=== PATIENT | female | born 1935 | race Asian ===

== ENCOUNTER 2022-10-19 05:41 | Inpatient (IN) | payer OTHER ==
[~2022-10-19] VITALS: Ht 149.9 cm; Wt 52.5 kg
[~2022-10-19 05:41] MED LIST: ASPI-1198 PO; LISI-894 PO
[2022-10-19] MEDS ORDERED: ALBUTEROL SULFATE 2.5 MG/0.5 ML NEB SOLUTION NEB ONE (06:00)
[2022-10-19] MEDS ORDERED: IPRATROPIUM BROMIDE 0.5 MG/2.5 ML NEB SOLUTION NEB ONE (06:00)
[2022-10-19] MEDS ORDERED: FUROSEMIDE 40 MG/4 ML VIAL IVP ONE (06:15)
[2022-10-19] MEDS ORDERED: NITROGLYCERIN 2% (1 GM=INCH) OINTMENT PACKET TP ONE (06:15)
[2022-10-19 06:22] LABS: COVID AG,FIA SOURCE NASAL SWAB
[2022-10-19 06:26] LABS: BASOPHILS % (AUTO) 1.1 % (0.0-2.0); EOSINOPHILS % (AUTO) 3.3 % (1.0-6.0); HEMATOCRIT 33.5 % (36-46); HEMOGLOBIN 10.2 g/dL (12.0-16.0); LYMPHOCYTES # (AUTO) 1.7 K/uL (1.0-4.8); LYMPHOCYTES % (AUTO) 27.8 % (22.0-44.0); MEAN CORPUSCULAR HEMOGLOBIN 22.8 pg (26.0-34.0); MEAN CORPUSCULAR HGB CONC 30.5 G/dL (31.0-37.0); MEAN CORPUSCULAR VOLUME 75 fL (80-100); MONOCYTES # (AUTO) 0.3 K/uL (0.1-1.0); MONOCYTES % (AUTO) 4.7 % (2.0-9.0); NEUTROPHILS # (AUTO) 3.8 K/uL (1.8-7.7); NEUTROPHILS % (AUTO) 63.1 % (40.0-70.0); PLATELET COUNT (AUTO) 282 K/uL (150-450); RED BLOOD CELL COUNT(AUTO) 4.47 MIL/uL (4.00-5.20); RED CELL DISTRIBUTION WIDTH 19.6 % (11.5-14.5)
[2022-10-19 06:32] LABS: ANION GAP 6 mmol/L (8-16); CALCIUM, TOTAL 8.6 mg/dL (8.8-10.5); CARBON DIOXIDE 30 mmol/L (22-29); CHLORIDE 99 mmol/L (98-107); CREATININE 0.83 mg/dL (0.60-1.30); GLOMERULAR FILTR. RATE CALC > 60 mL/min (>60); GLUCOSE,RANDOM 241 mg/dL (70-110); POTASSIUM 3.8 mmol/L (3.5-5.1); SODIUM SERUM 135 mmol/L (136-145); UREA NITROGEN, BLOOD 13 mg/dL (7-18)
[2022-10-19 06:49] LABS: INFLUENZA TYPE A NEGATIVE FOR TYPE A (NEGATIVE); INFLUENZA TYPE B NEGATIVE FOR TYPE B (NEGATIVE)
[2022-10-19 06:57] LABS: ALANINE AMINOTRANSFERASE 29 U/L (12-78); ALBUMIN 3.8 g/dL (3.4-5.0); ALKALINE PHOSPHATASE 88 U/L (46-116); ASPARTATE AMINOTRANSFERASE 49 U/L (15-37); B-TYPE NATRIURETIC PEPTIDE 286 pg/mL (0-100); BILIRUBIN,TOTAL 0.4 mg/dL (0.1-1.0); CREATINE KINASE, TOTAL ONLY 85 U/L (26-192)
[2022-10-19 08:15] LABS: APPEARANCE,URINE CLEAR (CLEAR); BILIRUBIN,URINE NEGATIVE (NEGATIVE); GLUCOSE, URINE (UA) NEGATIVE (NEGATIVE); KETONES,URINE NEGATIVE (NEGATIVE); LEUKOCYTE ESTERASE ,URINE NEGATIVE (NEGATIVE); NITRATE,URINE NEGATIVE (NEGATIVE); OCCULT BLOOD,URINE TRACE (NEGATIVE); PROTEIN,URINE NEGATIVE (NEGATIVE); SPECIFIC GRAVITIY, URINE 1.005 (1.003-1.030); UROBILINOGEN,URINE <=1.0 mg/dL (<=1.0)
[2022-10-19] MEDS ORDERED: METF-1211 PO (08:25)
[2022-10-19] MEDS ORDERED: FURO20TA4 PO (08:25)
[2022-10-19] MEDS ORDERED: AMLO5TAB66 PO (08:25)
[2022-10-19] MEDS ORDERED: [UNRECOGNIZED DRUG - CODE] PO (08:25)
[2022-10-19] MEDS ORDERED: MULT-1336 PO (08:25)
[2022-10-19] MEDS ORDERED: ASPI-1444 PO (08:25)
[2022-10-19] MEDS ORDERED: OS500 PO (08:25)
[2022-10-19] MEDS ORDERED: RALO60TA13 PO (08:25)
[2022-10-19] MEDS ORDERED: LISI20TA24 PO (08:25)
[2022-10-19 08:30] LABS: BACTERIA,URINE None Seen /HPF (None Seen); RBC,URINE 0-2 /HPF (0-2); SQUAMOUS EPITHELIAL CELL,UR Rare /LPF (None Seen); WBC,URINE 0-2 /HPF (0-5)
[2022-10-19] MEDS ORDERED: ACETAMINOPHEN 325 MG TABLET PO PRN (08:30)
[2022-10-19] MEDS ORDERED: 0.9% SODIUM CHLORIDE 10 ML SYRINGE IVP PRN (08:30)
[2022-10-19] MEDS ORDERED: BISACODYL 10 MG RECTAL RECTAL SUPPOSITORY PR PRN (08:30)
[2022-10-19] MEDS ORDERED: NITROGLYCERIN 0.4 MG SUBLINGUAL TABLET #25 SL PRN (08:30)
[2022-10-19] MEDS ORDERED: HydrALAZINE HCL 20 MG/ML VIAL IVP PRN (08:30)
[2022-10-19] MEDS ORDERED: ONDANSETRON HCL 4 MG/2 ML VIAL IVP PRN (08:30)
[2022-10-19] MEDS ORDERED: INSULIN LISPRO 100 UNITS/ML SQ PRN (08:30)
[2022-10-19] MEDS ORDERED: DOCUSATE SODIUM 100 MG CAPSULE PO PRN (08:30)
[2022-10-19] MEDS ORDERED: DEXTROSE 50%-WATER 25 GM/50 ML SYRINGE IVP PRN (08:30)
[2022-10-19 09:00] LABS: % IRON SATURATION 6.6 % (22-44)
[2022-10-19] MEDS ORDERED: LISINOPRIL 20 MG TABLET PO SCH (09:00)
[2022-10-19] MEDS ORDERED: METOPROLOL SUCCINATE 25 MG ER TABLET PO ONE (09:00)
[2022-10-19 09:03] LABS: HEMOGLOBIN A1C 6.2 % (3.8-5.6)
[2022-10-19 09:10] LABS: ABG BASE EXCESS 3.5 mmol/L (-2.0-3.0); ABG CARBOXYHEMOGLOBIN 0.6 % (0.0-1.5); ABG HCO3 27.1 mmol/L (22.0-26.0); ABG METHEMOGLOBIN 0.1 % (0.0-1.5); ABG OXYGEN CONTENT 16.4 mL/dL (15.0-23.0); ABG OXYGEN SATURATION 99.7 % (95.0-98.0); ABG PCO2 47 mmHg (35-45); ABG PH 7.399 (7.35-7.450); PO2, ARTERIAL BG 385.5 mmHg (71.0-79.0); SOURCE, BLOOD GAS ARTERIAL; TEMPERATURE, FAHRENHEIT, BG 97.9 FAHREN (96.0-98.6)
[2022-10-19 09:11] LABS: FREE T4 (FREE THYROXINE) 0.83 ng/dL (0.76-1.46)
[2022-10-19 09:11] LABS: O2 DEVICE,BLOOD GAS BIPAP (ROOM AIR); SITE, BLOOD GAS LFT RADIAL
[2022-10-19] MEDS: CALCIUM [CALCIUM CARB 1250MG] 500 MG TABLET PO SCH ×2 (09:11→21:03)
[2022-10-19] MEDS: ASPIRIN 81 MG CHEWABLE TABLET PO SCH ×2 (09:11→09:16)
[2022-10-19] MEDS: MULTIVITAMINS, THERAPEUTIC TABLET PO SCH (09:11)
[2022-10-19] MEDS: RALOXIFENE HCL 60 MG TABLET PO SCH (09:11)
[2022-10-19 09:12] LABS: SPONTANEOUS VT, BG 293 ml
[2022-10-19] MEDS ORDERED: DILTIAZEM HCL 125 MG in DEXTROSE 5%-WATER 100 ML IV SCH (10:30)
[2022-10-19] MEDS ORDERED: DILTIAZEM HCL 5 MG/ML 5 ML VIAL IVP ONE (10:30)
[2022-10-19] MEDS ORDERED: HEPARIN SODIUM,PORCINE 5,000 UNITS/ML VIAL IVP ONE (10:45)
[2022-10-19] MEDS ORDERED: HEPARIN SODIUM,PORCINE 5,000 UNITS/ML VIAL IVP PRN ×2 (10:45)
[2022-10-19] MEDS ORDERED: HEPARIN SODIUM 25000 UNITS/D5W 250 ML IV PRN (10:45)
[2022-10-19 10:51] LABS: GLUCOSE,POINT OF CARE 116 MG/DL (70-110)
[2022-10-19] MEDS ORDERED: AMIODARONE HCL 150 MG in DEXTROSE 5%-WATER 97 ML IV ONE (11:30)
[2022-10-19] MEDS ORDERED: AMIODARONE HCL 360 MG in DEXTROSE 5%-WATER 242.8 ML IV ONE (11:30)
[2022-10-19] MEDS ORDERED: ROSU40 PO (11:35)
[2022-10-19 12:01] LABS: BASOPHILS % (AUTO) 0.3 % (0.0-2.0); EOSINOPHILS % (AUTO) 0.1 % (1.0-6.0); HEMATOCRIT 32.5 % (36-46); LYMPHOCYTES # (AUTO) 1.4 K/uL (1.0-4.8); LYMPHOCYTES % (AUTO) 18.6 % (22.0-44.0); MEAN CORPUSCULAR HEMOGLOBIN 22.2 pg (26.0-34.0); MEAN CORPUSCULAR HGB CONC 30.6 G/dL (31.0-37.0); MEAN CORPUSCULAR VOLUME 73 fL (80-100); MONOCYTES # (AUTO) 0.4 K/uL (0.1-1.0); MONOCYTES % (AUTO) 5.4 % (2.0-9.0); NEUTROPHILS # (AUTO) 5.9 K/uL (1.8-7.7); NEUTROPHILS % (AUTO) 75.6 % (40.0-70.0); PLATELET COUNT (AUTO) 277 K/uL (150-450); RED BLOOD CELL COUNT(AUTO) 4.49 MIL/uL (4.00-5.20); RED CELL DISTRIBUTION WIDTH 19.4 % (11.5-14.5)
[2022-10-19 12:10] LABS: MAGNESIUM 1.8 mg/dL (1.80-2.40); POTASSIUM 3.6 mmol/L (3.5-5.1)
[2022-10-19] MEDS ORDERED: AMIODARONE HCL 540 MG in DEXTROSE 5%-WATER 239.2 ML IV ONE (19:00)
[2022-10-19 20:24] VITALS: BP 125/74
[2022-10-19] MEDS ORDERED: ROSUVASTATIN CALCIUM 20 MG TABLET PO SCH (21:00)
[2022-10-19 23:51] VITALS: BP 113/58
[2022-10-20 04:45] VITALS: BP 132/75
[2022-10-20 07:07] LABS: BASOPHILS % (AUTO) 0.6 % (0.0-2.0); EOSINOPHILS % (AUTO) 1.3 % (1.0-6.0); HEMATOCRIT 31.1 % (36-46); HEMOGLOBIN 9.6 g/dL (12.0-16.0); LYMPHOCYTES # (AUTO) 1.9 K/uL (1.0-4.8); LYMPHOCYTES % (AUTO) 23.5 % (22.0-44.0); MEAN CORPUSCULAR HEMOGLOBIN 22.5 pg (26.0-34.0); MEAN CORPUSCULAR HGB CONC 30.9 G/dL (31.0-37.0); MEAN CORPUSCULAR VOLUME 73 fL (80-100); MONOCYTES # (AUTO) 0.4 K/uL (0.1-1.0); MONOCYTES % (AUTO) 5.3 % (2.0-9.0); NEUTROPHILS # (AUTO) 5.7 K/uL (1.8-7.7); NEUTROPHILS % (AUTO) 69.3 % (40.0-70.0); PLATELET COUNT (AUTO) 276 K/uL (150-450); RED BLOOD CELL COUNT(AUTO) 4.27 MIL/uL (4.00-5.20); RED CELL DISTRIBUTION WIDTH 19.6 % (11.5-14.5)
[2022-10-20 07:15] VITALS: BP 120/63
[2022-10-20 07:32] LABS: ALANINE AMINOTRANSFERASE 24 U/L (12-78); ALBUMIN 3.4 g/dL (3.4-5.0); ALKALINE PHOSPHATASE 85 U/L (46-116); ANION GAP 4 mmol/L (8-16); ASPARTATE AMINOTRANSFERASE 40 U/L (15-37); BILIRUBIN,TOTAL 0.7 mg/dL (0.1-1.0); CALCIUM, TOTAL 8.3 mg/dL (8.8-10.5); CARBON DIOXIDE 35 mmol/L (22-29); CHLORIDE 100 mmol/L (98-107); CREATININE 0.87 mg/dL (0.60-1.30); GLOMERULAR FILTR. RATE CALC > 60 mL/min (>60); GLUCOSE,RANDOM 113 mg/dL (70-110); POTASSIUM 3.9 mmol/L (3.5-5.1); SODIUM SERUM 139 mmol/L (136-145); TOTAL PROTEIN, SERUM 7.5 g/dL (6.4-8.2); UREA NITROGEN, BLOOD 11 mg/dL (7-18)
[2022-10-20] MEDS ORDERED: FUROSEMIDE 20 MG/2 ML VIAL IVP SCH (09:00)
[2022-10-20] MEDS: RALOXIFENE HCL 60 MG TABLET PO SCH (09:29)
[2022-10-20] MEDS: MULTIVITAMINS, THERAPEUTIC TABLET PO SCH (09:29)
[2022-10-20] MEDS: CALCIUM [CALCIUM CARB 1250MG] 500 MG TABLET PO SCH (09:29)
[2022-10-20] MEDS ORDERED: AMIODARONE HCL 200 MG TABLET PO SCH (09:45)
[2022-10-20] MEDS ORDERED: APIXABAN 2.5 MG TABLET PO SCH (09:45)
[2022-10-20 11:27] VITALS: BP 112/63
[2022-10-20 12:06] LABS: GLUCOMETER DEV NAME(LOC) 5N.1C; GLUCOSE,POINT OF CARE 119 MG/DL (70-110)
[2022-10-20] MEDS ORDERED: AMIODARONE HCL 750 MG in DEXTROSE 5%-WATER 485 ML IV SCH (13:00)
[2022-10-20] MEDS ORDERED: FURO40 PO ×2 (16:07→16:08)
[2022-10-20] MEDS ORDERED: APIX2.5T PO (16:11)
[2022-10-20] MEDS ORDERED: AMIO200T68 PO (16:11)
[2022-10-22 02:11] LABS: GLUCOMETER DEV NAME(LOC) 5S.1B; GLUCOSE,POINT OF CARE 117 MG/DL (70-110)
== END 2022-10-20 16:41 | disposition home health service (06) | DRG 189 ==
LOC: EMS 05:42 → AHU 09:00 → 5S 18:31
PROVIDERS: ADMIT Internal Medicine; ATTEND Internal Medicine
PROC: 5A09357 Assistance with Respiratory Ventilation, Less than 24 Consecutive Hours, Continuous Positive Airway Pressure (ICD-10-PCS; principal; 2022-10-19)
DX: J96.01 Acute respiratory failure with hypoxia (principal); I50.33 Acute on chronic diastolic (congestive) heart failure; I48.92 Unspecified atrial flutter; I24.8 Other forms of acute ischemic heart disease; I48.91 Unspecified atrial fibrillation; I11.0 Hypertensive heart disease with heart failure; D50.9 Iron deficiency anemia, unspecified; I34.0 Nonrheumatic mitral (valve) insufficiency; D64.9 Anemia, unspecified; E78.00 Pure hypercholesterolemia, unspecified; F03.90 Unspecified dementia, unspecified severity, without behavioral disturbance, psychotic disturbance, mood disturbance, and anxiety; Z79.82 Long term (current) use of aspirin; Z79.899 Other long term (current) drug therapy; Z87.891 Personal history of nicotine dependence; Z87.74 Personal history of (corrected) congenital malformations of heart and circulatory system
CPT/HCPCS: 36600; 71045; 76705; 80053; 81001; 82550; 82728; 82805; 82962; 83036; 83540; 83550; 83735; 83880; 84132; 84145; 84439; 84443; 84484; 85025; 85379; 85730; 87040; 87804; 93005; 93306; 93970; 94644; 94660; 99291; J0282; J1644; J1940; J3490; J7060; 36415-L1; 36415-TC; J7613

== ENCOUNTER 2022-10-30 02:52 | Inpatient (IN) | payer OTHER ==
[~2022-10-30] VITALS: Ht 149.9 cm; Wt 50.5 kg
[~2022-10-30 02:52] MED LIST changes: +AMIO200T68 PO; +APIX2.5T PO; -ASPI-1198 PO; +FURO40 PO; -LISI-894 PO; +METF-1211 PO; +MULT-1336 PO; +OS500 PO; +RALO60TA13 PO; +ROSU40 PO
[2022-10-30] MEDS ORDERED: NITROGLYCERIN 50 MG/D5% WATER 250 ML IV PRN (03:15)
[2022-10-30 03:42] LABS: BASOPHILS % (AUTO) 0.8 % (0.0-2.0); CALCIUM, TOTAL 8.9 mg/dL (8.8-10.5); CREATININE 0.98 mg/dL (0.60-1.30); EOSINOPHILS % (AUTO) 2.5 % (1.0-6.0); HEMATOCRIT 34.1 % (36-46); HEMOGLOBIN 10.2 g/dL (12.0-16.0); LYMPHOCYTES # (AUTO) 4.9 K/uL (1.0-4.8); LYMPHOCYTES % (AUTO) 39.9 % (22.0-44.0); MEAN CORPUSCULAR HEMOGLOBIN 22.6 pg (26.0-34.0); MEAN CORPUSCULAR HGB CONC 29.8 G/dL (31.0-37.0); MEAN CORPUSCULAR VOLUME 76 fL (80-100); MONOCYTES # (AUTO) 0.6 K/uL (0.1-1.0); MONOCYTES % (AUTO) 4.9 % (2.0-9.0); NEUTROPHILS # (AUTO) 6.3 K/uL (1.8-7.7); NEUTROPHILS % (AUTO) 51.9 % (40.0-70.0); PLATELET COUNT (AUTO) 329 K/uL (150-450); POTASSIUM 3.6 mmol/L (3.5-5.1); RED BLOOD CELL COUNT(AUTO) 4.51 MIL/uL (4.00-5.20); RED CELL DISTRIBUTION WIDTH 20.4 % (11.5-14.5)
[2022-10-30] MEDS ORDERED: FUROSEMIDE 20 MG/2 ML VIAL IVP ONE (03:45)
[2022-10-30 03:47] LABS: PROTHROMBIN TIME 10.3 SEC (9.4-11.6)
[2022-10-30 04:07] LABS: ALBUMIN 4.2 g/dL (3.4-5.0); BILIRUBIN,TOTAL 0.4 mg/dL (0.1-1.0); MAGNESIUM 2.4 mg/dL (1.80-2.40); PHOSPHORUS 4.1 mg/dL (2.5-4.9); TOTAL PROTEIN, SERUM 8.9 g/dL (6.4-8.2)
[2022-10-30] MEDS ORDERED: ACETAMINOPHEN 325 MG TABLET PO PRN ×2 (05:45→07:30)
[2022-10-30] MEDS ORDERED: ONDANSETRON HCL 4 MG/2 ML VIAL IVP PRN ×2 (05:45→07:30)
[2022-10-30] MEDS ORDERED: 0.9% SODIUM CHLORIDE 10 ML SYRINGE IVP PRN (05:45)
[2022-10-30] MEDS ORDERED: INSULIN LISPRO 100 UNITS/ML SQ PRN (07:30)
[2022-10-30] MEDS ORDERED: HydrALAZINE HCL 20 MG/ML VIAL IVP PRN (07:30)
[2022-10-30] MEDS ORDERED: DEXTROSE 50%-WATER 25 GM/50 ML SYRINGE IVP PRN (07:30)
[2022-10-30 08:07] LABS: COVID AG,FIA SOURCE NASOPHARYNGEAL
[2022-10-30] MEDS: ATORVASTATIN CALCIUM 20 MG TABLET PO SCH (08:55)
[2022-10-30] MEDS: ASPIRIN 81 MG CHEWABLE TABLET PO SCH (08:56)
[2022-10-30] MEDS: FAMOTIDINE 20 MG TABLET PO SCH (08:56)
[2022-10-30] MEDS: LOSARTAN POTASSIUM 25 MG TABLET PO SCH (08:56)
[2022-10-30] MEDS: DOCUSATE SODIUM 100 MG CAPSULE PO SCH ×2 (09:00→21:00)
[2022-10-30] MEDS: APIXABAN 2.5 MG TABLET PO SCH ×2 (10:05→20:20)
[2022-10-30] MEDS: METOPROLOL SUCCINATE 25 MG ER TABLET PO SCH (10:07)
[2022-10-30] MEDS: FUROSEMIDE 20 MG/2 ML VIAL IVP SCH ×2 (14:05→21:00)
[2022-10-30 15:31] VITALS: BP 116/59
[2022-10-30 19:49] VITALS: BP 99/46
[2022-10-30 20:14] VITALS: BP 117/52
[2022-10-30 23:58] VITALS: BP 110/50
[2022-10-31 01:14] LABS: APPEARANCE,URINE CLEAR (CLEAR); BILIRUBIN,URINE NEGATIVE (NEGATIVE); GLUCOSE, URINE (UA) NEGATIVE (NEGATIVE); KETONES,URINE NEGATIVE (NEGATIVE); LEUKOCYTE ESTERASE ,URINE NEGATIVE (NEGATIVE); NITRATE,URINE NEGATIVE (NEGATIVE); OCCULT BLOOD,URINE LARGE (NEGATIVE); PH,URINE 5.5 (5.0-8.0); PROTEIN,URINE NEGATIVE (NEGATIVE); SPECIFIC GRAVITIY, URINE 1.008 (1.003-1.030); UROBILINOGEN,URINE <=1.0 mg/dL (<=1.0)
[2022-10-31 01:29] LABS: BACTERIA,URINE None Seen /HPF (None Seen); SQUAMOUS EPITHELIAL CELL,UR Few /LPF (None Seen); WBC,URINE 0-2 /HPF (0-5)
[2022-10-31 04:47] VITALS: BP 104/51
[2022-10-31 07:06] LABS: GLUCOMETER DEV NAME(LOC) 5N.1C; GLUCOSE,POINT OF CARE 80 MG/DL (70-110)
[2022-10-31 07:39] LABS: BASOPHILS % (AUTO) 1.2 % (0.0-2.0); EOSINOPHILS % (AUTO) 3.6 % (1.0-6.0); HEMATOCRIT 30.1 % (36-46); HEMOGLOBIN 9.3 g/dL (12.0-16.0); LYMPHOCYTES # (AUTO) 2.1 K/uL (1.0-4.8); LYMPHOCYTES % (AUTO) 34.1 % (22.0-44.0); MEAN CORPUSCULAR HEMOGLOBIN 22.9 pg (26.0-34.0); MEAN CORPUSCULAR VOLUME 74 fL (80-100); MONOCYTES # (AUTO) 0.4 K/uL (0.1-1.0); MONOCYTES % (AUTO) 6.1 % (2.0-9.0); NEUTROPHILS # (AUTO) 3.4 K/uL (1.8-7.7); PLATELET COUNT (AUTO) 272 K/uL (150-450); RED BLOOD CELL COUNT(AUTO) 4.07 MIL/uL (4.00-5.20); RED CELL DISTRIBUTION WIDTH 19.3 % (11.5-14.5)
[2022-10-31 07:42] VITALS: BP 101/43
[2022-10-31 08:51] LABS: ALANINE AMINOTRANSFERASE 21 U/L (12-78); ALBUMIN 3.3 g/dL (3.4-5.0); ALKALINE PHOSPHATASE 65 U/L (46-116); ANION GAP 9 mmol/L (8-16); ASPARTATE AMINOTRANSFERASE 25 U/L (15-37); BILIRUBIN,TOTAL 0.5 mg/dL (0.1-1.0); CALCIUM, TOTAL 8.7 mg/dL (8.8-10.5); CARBON DIOXIDE 29 mmol/L (22-29); CHLORIDE 103 mmol/L (98-107); GLUCOSE,RANDOM 75 mg/dL (70-110); POTASSIUM 3.6 mmol/L (3.5-5.1); SODIUM SERUM 141 mmol/L (136-145); TOTAL PROTEIN, SERUM 6.9 g/dL (6.4-8.2); UREA NITROGEN, BLOOD 14 mg/dL (7-18)
[2022-10-31] MEDS: LOSARTAN POTASSIUM 25 MG TABLET PO SCH (09:00)
[2022-10-31] MEDS ORDERED: FUROSEMIDE 20 MG TABLET PO SCH (09:00)
[2022-10-31] MEDS: METOPROLOL SUCCINATE 25 MG ER TABLET PO SCH (09:00)
[2022-10-31 09:04] LABS: CREATININE 0.82 mg/dL (0.60-1.30); GLOMERULAR FILTR. RATE CALC > 60 mL/min (>60)
[2022-10-31] MEDS: FAMOTIDINE 20 MG TABLET PO SCH (09:15)
[2022-10-31] MEDS: FUROSEMIDE 20 MG/2 ML VIAL IVP SCH (09:15)
[2022-10-31] MEDS: ASPIRIN 81 MG CHEWABLE TABLET PO SCH (09:16)
[2022-10-31] MEDS: ATORVASTATIN CALCIUM 20 MG TABLET PO SCH (09:16)
[2022-10-31] MEDS: APIXABAN 2.5 MG TABLET PO SCH (09:16)
[2022-10-31] MEDS: DOCUSATE SODIUM 100 MG CAPSULE PO SCH (09:16)
[2022-10-31 11:46] VITALS: BP 94/45
[2022-10-31 22:51] LABS: GLUCOMETER DEV NAME(LOC) 5N.1C; GLUCOSE,POINT OF CARE 129 MG/DL (70-110)
== END 2022-10-31 18:40 | disposition home health service (06) | DRG 304 ==
LOC: EMS 02:53 → ICU 06:00 → AHU 09:43 → 5S 13:26
PROVIDERS: ADMIT Internal Medicine; ATTEND Internal Medicine
PROC: 5A09357 Assistance with Respiratory Ventilation, Less than 24 Consecutive Hours, Continuous Positive Airway Pressure (ICD-10-PCS; principal; 2022-10-30)
DX: I16.1 Hypertensive emergency (principal); I50.33 Acute on chronic diastolic (congestive) heart failure; J96.01 Acute respiratory failure with hypoxia; I11.0 Hypertensive heart disease with heart failure; I34.0 Nonrheumatic mitral (valve) insufficiency; I48.0 Paroxysmal atrial fibrillation; E11.65 Type 2 diabetes mellitus with hyperglycemia; E11.319 Type 2 diabetes mellitus with unspecified diabetic retinopathy without macular edema; F03.90 Unspecified dementia, unspecified severity, without behavioral disturbance, psychotic disturbance, mood disturbance, and anxiety; Z20.822 Contact with and (suspected) exposure to COVID-19; I25.10 Atherosclerotic heart disease of native coronary artery without angina pectoris; E78.00 Pure hypercholesterolemia, unspecified; Z87.891 Personal history of nicotine dependence; Z95.1 Presence of aortocoronary bypass graft; Z87.74 Personal history of (corrected) congenital malformations of heart and circulatory system; Z95.2 Presence of prosthetic heart valve
CPT/HCPCS: 71045; 80053; 81001; 82550; 82962; 83735; 83880; 84100; 84484; 85025; 85610; 85730; 93005; 94660; 97162; 99291; J1940; J3490; 36415-L1; 36415-TC

== ENCOUNTER 2025-01-12 17:20 | Emergency (ER) | payer OTHER ==
[~2025-01-12] VITALS: Ht 149.9 cm; Wt 54.5 kg
[~2025-01-12 17:20] MED LIST changes: -FURO40 PO; +FURO40TA6 PO
[2025-01-12] MEDS ORDERED: LISI-894 PO (17:34)
[2025-01-12 17:36] VITALS: TEMP 97.6
[2025-01-12 19:48] LABS: BASOPHILS % (AUTO) 0.5 % (0.0-2.0); EOSINOPHILS % (AUTO) 2.9 % (1.0-6.0); HEMATOCRIT 39.8 % (36-46); LYMPHOCYTES # (AUTO) 1.9 K/uL (1.0-4.8); LYMPHOCYTES % (AUTO) 31.7 % (22.0-44.0); MEAN CORPUSCULAR HGB CONC 32.6 G/dL (31.0-37.0); MEAN CORPUSCULAR VOLUME 92 fL (80-100); MONOCYTES # (AUTO) 0.4 K/uL (0.1-1.0); MONOCYTES % (AUTO) 7.2 % (2.0-9.0); NEUTROPHILS # (AUTO) 3.5 K/uL (1.8-7.7); NEUTROPHILS % (AUTO) 57.7 % (40.0-70.0); PLATELET COUNT (AUTO) 210 K/uL (150-450); RED BLOOD CELL COUNT(AUTO) 4.32 MIL/uL (4.00-5.20); RED CELL DISTRIBUTION WIDTH 14.8 % (11.5-14.5)
[2025-01-12 19:56] LABS: ANION GAP 3 mmol/L (8-16); CALCIUM, TOTAL 9.3 mg/dL (8.8-10.5); CARBON DIOXIDE 32 mmol/L (22-29); CHLORIDE 105 mmol/L (98-107); CREATININE 0.71 mg/dL (0.60-1.30); GLOMERULAR FILTR. RATE CALC > 60 mL/min (>60); GLUCOSE,RANDOM 124 mg/dL (70-110); SODIUM SERUM 140 mmol/L (136-145); UREA NITROGEN, BLOOD 10 mg/dL (7-18)
[2025-01-12 20:01] LABS: ALBUMIN 3.7 g/dL (3.4-5.0); BILIRUBIN,DIRECT 0.2 mg/dL (0.00-0.20); BILIRUBIN,TOTAL 0.8 mg/dL (0.1-1.0); TOTAL PROTEIN, SERUM 7.9 g/dL (6.4-8.2)
[2025-01-12] MEDS ORDERED: ALBU18HF12 IH (23:10)
[2025-01-13 01:00] VITALS: BP 131/82; PULSE 72; RESP 18; O2SAT 97
[2025-01-13] MEDS: ALBUTEROL SULFATE HFA 90 MCG/PUFF 8 GM INHALER IH ONE (01:08)
== END 2025-01-13 01:16 | disposition home or self-care (01) ==
LOC: EMS 17:21
DX: R06.02 Shortness of breath (principal); I11.0 Hypertensive heart disease with heart failure; I50.9 Heart failure, unspecified; J45.909 Unspecified asthma, uncomplicated; I25.10 Atherosclerotic heart disease of native coronary artery without angina pectoris; E78.00 Pure hypercholesterolemia, unspecified; E78.5 Hyperlipidemia, unspecified; Z79.01 Long term (current) use of anticoagulants; Z79.899 Other long term (current) drug therapy
CPT/HCPCS: 99284; 71045; 80048; 80076; 83880; 85025; 36415; 94640; J3535